=== PATIENT | male | born 1995 | race Caucasian/White ===

== ENCOUNTER 2021-09-12 17:17 | Emergency (ER) | payer OTHER ==
[~2021-09-12] VITALS: Ht 182.9 cm; Wt 106.8 kg
[~2021-09-12 17:17] MED LIST: CEPHALEXIN500 M1 PO; NAPROSYN500 MG PO; NORCO 325 MG-51 TAB PO
[2021-09-12 17:46] VITALS: BP 134/86; PULSE 73; TEMP 98.5
== END 2021-09-12 18:42 | disposition left against medical advice (07) ==
LOC: COL.ER 17:17
DX: R51.9 Headache, unspecified (principal)